=== PATIENT | male | born 1965 | race African-American/Black ===

== ENCOUNTER 2019-03-24 08:34 | Emergency (ER) | payer OTHER ==
[~2019-03-24] VITALS: Ht 170.2 cm; Wt 73.0 kg
[2019-03-24 08:36] VITALS: BP 162/98
[2019-03-24] MEDS ORDERED: BACITRACIN ZINC OINT UDPKT TOP ONE (10:00)
== END 2019-03-24 10:01 | disposition home or self-care (01) ==
LOC: ER 08:56
DX: S09.8XXA Other specified injuries of head, initial encounter (principal); S20.211A Contusion of right front wall of thorax, initial encounter; Y08.89XA Assault by other specified means, initial encounter; Y93.89 Activity, other specified; Y92.9 Unspecified place or not applicable
CPT/HCPCS: 71101; 93005; 99283